=== PATIENT | male | born 1970 | race Caucasian/White ===

== ENCOUNTER 2016-10-19 14:17 | Emergency (ER) | payer MEDICAID ==
[2016-10-19] MEDS ORDERED: Ketorolac 60 MG/2 ML SDV IM ONE (14:44)
[2016-10-19] MEDS ORDERED: Ketorolac 60 MG/2 ML SDV ONE (14:45)
--- NOTE | 2016-10-19 15:04 | EDM.PDOC ---
ED HPI GENERAL MEDICAL PROBLEM - General Chief Complaint: General Stated Complaint: BACK INJURY Time Seen by Provider: 10/19/16 14:20 Source of Information: Reports: Patient History Limitations: Reports: No Limitations - History of Present Illness INITIAL COMMENTS - FREE TEXT/NARRATIVE: According to patient he fell on the stairs on thursday and hurt his midback, there was some pain, but was able to do his routine activities. He was down in [place] over the week end and was driving back yesterday, and had to sneeze loud, and felt a sudden sharp pain in his left midback. Since then he has pain which gets worse with any movement of the chest. Deep breathing or coughing hurts. No wheezing, cough or shortness of breath. No fever or chills. No other complaints. no other complaints. Onset Date: 10/18/16 Duration: Getting Worse Location: Reports: Back Quality: Reports: Ache Severity: Severe Improves with: Reports: Immobilization Worsens with: Reports: Breathing, Movement Associated Symptoms: Denies: Confusion, Chest Pain, Cough, Diaphoresis, Fever/ Chills, Headaches, Nausea/Vomiting, Shortness of Breath, Weakness - Related Data Allergies Allergy/AdvReac Type Severity Reaction Status Date / Time No Known Allergies Allergy Verified 03/02/15 13:43 Home Meds: Home Meds Metoprolol Succinate [Toprol XL 100mg] 100 mg PO DAILY 03/02/15 [History] Lisinopril/Hydrochlorothiazide [Lisinopril-Hctz 20-12.5 mg Tab] 12.5 - 20 mg PO DAILY 10/19/16 [History] Social & Family History - Tobacco Use Smoking Status *Q: Light Tobacco Smoker Years of Tobacco use: 20 Packs/Tins Daily: 0.5 - Recreational Drug Use Recreational Drug Use: No ED ROS GENERAL - Review of Systems Review Of Systems: See Below Constitutional: Denies: Fever, Chills HEENT: Denies: Rhinitis, Sinus Problem, Throat Pain, Throat Swelling Respiratory: Denies: Shortness of Breath, Cough, Sputum Cardiovascular: Denies: Chest Pain, Lightheadedness GI/Abdominal: Denies: Abdominal Pain, Anorexia, Nausea, Vomiting : Denies: Dysuria, Flank Pain, Frequency Musculoskeletal: Reports: Back Pain. Denies: Joint Pain, Joint Swelling Skin: Denies: Bruising, Pruritis, Rash Neurological: Denies: Dizziness, Headache, Trouble Speaking, Difficulty Walking , Weakness Psychiatric: Denies: Agitation, Anxiety ED EXAM, GENERAL - Physical Exam Exam: See Below Exam Limited By: No Limitations General Appearance: Alert, WD/WN, Mild Distress Eye Exam: Bilateral Eye: EOMI, PERRL Ears: Normal External Exam, Normal Canal, Hearing Grossly Normal, Normal TMs Ear Exam: Bilateral Ear: Auricle Normal, Canal Normal, TM normal Nose: Normal Inspection, Normal Mucosa, No Blood Throat/Mouth: Normal Inspection, Normal Lips, Normal Teeth, Normal Gums, Normal Oropharynx, Normal Voice, No Airway Compromise Head: Atraumatic, Normocephalic Neck: Normal Inspection, Supple, Non-Tender, Full Range of Motion Respiratory/Chest: No Respiratory Distress, Lungs Clear, Normal Breath Sounds, Other (tender over the left midback over the 9th rib, positive crepitus felt.) GI/Abdominal: Normal Bowel Sounds, Soft, Non-Tender, No Organomegaly, No Distention, No Abnormal Bruit, No Mass Course - Vital Signs Text/Narrative:: Pt's rib series show left 9th rib fracture. He did receive toradol 60mg IM in the emergency room. Also I have reassured him that there is not much done for rib fracture. Pain control . Started on vicodin every 4-6 hrs as needed and alleve 500mg twice daily. Deep breathing exercises to prevent atelectasis of lung. Intermittent heat and cold to the chest. Avoid twisting and turning movement of the chest. Also his BP is 157/127mmhg. Pt has not taken his lisinopril or metoprolol for past 2 days. i did give him one dose of clonidine o.1mg to get his Blood pressure down. Advised patient to go home and take his meds. Last Recorded V/S: Last Vital Signs Temp Pulse Resp BP 157/124 H 10/19/16 15:22 Pulse Ox - Orders/Labs/Meds Orders: Active Orders 24 hr Category Date Time Status Ribs 2V wo Chest Lt [CR] Stat Exams 10/19/16 14:41 Ordered Meds: Medications Discontinued Medications Generic Name Dose Route Start Last Admin Trade Name Freq PRN Reason Stop Dose Admin Clonidine HCl Confirm 10/19/16 15:20 10/19/16 15:21 Catapres Administered 10/19/16 15:21 Not Given Dose 0.1 mg .ROUTE .STK-MED ONE Clonidine HCl 0.1 mg 10/19/16 15:19 10/19/16 15:22 Catapres PO 10/19/16 15:20 0.1 mg ONETIME ONE Administration Ketorolac Tromethamine 60 mg 10/19/16 14:44 10/19/16 14:54 Toradol IM 10/19/16 14:45 60 mg ONETIME ONE Administration Ketorolac Tromethamine Confirm 10/19/16 14:45 10/19/16 14:52 Toradol Administered 10/19/16 14:46 Not Given Dose 60 mg .ROUTE .STK-MED ONE Departure - Departure Time of Disposition: 15:45 Disposition: Home, Self-Care 01 Condition: fair Clinical Impression: Left rib fracture - Discharge Information Instructions: Acetaminophen; Hydrocodone tablets or capsules, Ibuprofen tablets and capsules, Naproxen oral suspension Referrals: PCP,None [Primary Care Provider] - Forms: ED Department Discharge Additional Instructions: Pt's rib series show left 9th rib fracture. He did receive toradol 60mg IM in the emergency room. Also I have reassured him that there is not much done for rib fracture. Pain control . Started on vicodin every 4-6 hrs as needed and alleve 500mg twice daily. Deep breathing exercises to prevent atelectasis of lung. Intermittent heat and cold to the chest. Avoid twisting and turning movement of the chest. Also his BP is 157/127mmhg. Pt has not taken his lisinopril or metoprolol for past 2 days. i did give him one dose of clonidine o.1mg to get his Blood pressure down. Advised patient to go home and take his meds. Care Plan Goals: Take vicoden every 4 to 6 hours as needed for pain and can take naproxin 440mg twice a day or ibuprofen 600mg 3 x day between. Apply cold to area 10 minutes of an hour 3 to 4 x day. Than you can alternate heat with cold 10 minutes of hour 3 to 4 x hour. Splint area with coughing or sneezing. Take deep breaths to avoid pneumonia Fill metoprolol and take as directed. - Problem List & Annotations (1) Left rib fracture SNOMED Code(s): 75004575 Code(s): S22.32XA - FRACTURE OF ONE RIB, LEFT SIDE, INIT FOR CLOS FX Status : Acute Current Visit: Yes - Problem List Review Problem List Initiated/Reviewed/Updated: Yes - My Orders Last 24 Hours: My Active Orders 10/19/16 14:41 Ribs 2V wo Chest Lt [CR] Stat - Assessment/Plan Last 24 Hours: My Active Orders 10/19/16 14:41 Ribs 2V wo Chest Lt [CR] Stat Assessment:: Left rib fracture Plan: Pt's rib series show left 9th rib fracture. He did receive toradol 60mg IM in the emergency room. Also I have reassured him that there is not much done for rib fracture. Pain control . Started on vicodin every 4-6 hrs as needed and alleve 500mg twice daily. Deep breathing exercises to prevent atelectasis of lung. Intermittent heat and cold to the chest. Avoid twisting and turning movement of the chest. Also his BP is 157/127mmhg. Pt has not taken his lisinopril or metoprolol for past 2 days. i did give him one dose of clonidine o.1mg to get his Blood pressure down. Advised patient to go home and take his meds.
[2016-10-19] MEDS ORDERED: cloNIDine 0.1 MG Tab PO ONE (15:19)
[2016-10-19] MEDS ORDERED: cloNIDine 0.1 MG Tab ONE (15:20)
[2016-10-19 17:26] VITALS: BP 150/106
--- NOTE | 2016-10-20 08:48 | CR ---
Date of Service: 10/19/16 Clinical Data: Left sided rib pain. LEFT RIBS There is mildly displaced fracture through the left 10th rib posterolaterally. No other displaced fractures. No pneumothorax. No pleural effusions. [id number] [facility]
== END 2016-10-19 15:30 | disposition home or self-care (01) ==
LOC: LB.ED 14:17
DX: S22.32XA Fracture of one rib, left side, initial encounter for closed fracture (principal); Z79.899 Other long term (current) drug therapy; F17.210 Nicotine dependence, cigarettes, uncomplicated; W10.9XXA Fall (on) (from) unspecified stairs and steps, initial encounter
CPT/HCPCS: 71100; 96374; 99283; A9270; J1885

== ENCOUNTER 2021-07-07 11:58 | Emergency (ER) | payer BC ==
[2021-07-07] MEDS: Ketorolac 30 MG/ML SDV IM ONE (13:00)
[2021-07-07 16:05] VITALS: BP 164/94; PULSE 87
== END 2021-07-07 13:03 | disposition home or self-care (01) ==
LOC: LB.ED 11:58
DX: S43.421A Sprain of right rotator cuff capsule, initial encounter (principal); I10 Essential (primary) hypertension; Z79.899 Other long term (current) drug therapy; W18.30XA Fall on same level, unspecified, initial encounter
CPT/HCPCS: 73030; 96372; 99283; J1885

== ENCOUNTER 2022-05-05 23:55 | Emergency (ER) | payer BC ==
[2022-05-06] MEDS ORDERED: Sodium Chloride 0.9% 10 ML Syringe FLUSH PRN (00:28)
[2022-05-06] MEDS ORDERED: methylPREDNISolone Sodium Succinate 125 MG/2 ML SDV IVPUSH ONE (00:29)
[2022-05-06] MEDS ORDERED: Albuterol/Ipratropium 3.0-0.5 MG/3 ML Neb Soln NEB PRN (00:29)
[2022-05-06] MEDS ORDERED: Potassium Chloride 40 MEQ/20 ML SDV IV STA (01:10)
[2022-05-06] MEDS ORDERED: Potassium Chloride Riders 50 ML ONE (01:14)
[2022-05-06] MEDS ORDERED: Potassium Chloride Riders 10 MEQ in Premix Bag 1 BAG IV ONE (02:00)
[2022-05-06] MEDS ORDERED: Budesonide 0.5 MG/2 ML Neb Susp ONE (02:16)
[2022-05-06 04:38] VITALS: BP 114/77; PULSE 77
== END 2022-05-06 04:20 | disposition home or self-care (01) ==
LOC: LB.ED 23:55
DX: T59.811A Toxic effect of smoke, accidental (unintentional), initial encounter (principal); E87.6 Hypokalemia; I10 Essential (primary) hypertension; Z79.899 Other long term (current) drug therapy
CPT/HCPCS: 36415; 71045; 80048; 85027; 94640; 96365; 96375; 99284; J2930; J3480; J7620